=== PATIENT | male | born 1940 | race Caucasian/White ===

== ENCOUNTER 2021-09-22 14:59 | Outpatient (CLI) | payer MEDICARE | END 2021-09-22 15:00 | disposition home or self-care (01) | LOC: BURRAD 14:59 | PROVIDERS: ATTEND Physician Assistant Medical | DX: R06.2 Wheezing (principal); I51.7 Cardiomegaly; J39.8 Other specified diseases of upper respiratory tract | CPT/HCPCS: 71046 ==